=== PATIENT | female | born 1955 | race Caucasian/White ===

== ENCOUNTER 2019-05-25 15:45 | Emergency (ER) | payer OTHER ==
[2019-05-25] MEDS ORDERED: IBUPROFEN 800 MG TABLET PO ONE (16:13)
--- NOTE | 2019-05-25 16:14 | ER Document Report ---
ED Medical Screen (RME) - General Chief Complaint: Arm Pain Stated Complaint: FALL Time Seen by Provider: 05/25/19 16:08 Mode of Arrival: Ambulatory Information source: Patient Notes: 63-year-old female presents emergency department with complaints of right arm pain. Reports she was walking at [facility] [place] fell face forward hitting her lip and hurting her right arm. Patient has swelling and pain to the right humerus and right wrist pain. Denies change in LOC. Is not taking any type of anticoagulant. I have greeted and performed a rapid initial assessment of this patient. A c omprehensive ED assessment and evaluation of the patient, analysis of test results and completion of the medical decision making process will be conducted by additional ED providers. - Related Data Allergies/Adverse Reactions: No Known Allergies Allergy (Verified 05/25/19 16:07) Physical Exam - Vital signs Vitals: Temp Pulse Resp BP Pulse Ox 97.8 F 92 18 152/82 H 97 05/25/19 15:54 05/25/19 15:54 05/25/19 15:54 05/25/19 15:54 05/25/19 15:54 Course - Vital Signs Vital signs: Temp Pulse Resp BP Pulse Ox 97.8 F 92 18 152/82 H 97 05/25/19 15:54 05/25/19 15:54 05/25/19 15:54 05/25/19 15:54 05/25/19 15:54
--- NOTE | 2019-05-25 16:54 | RADIOLOGY REPORT (SQ) ---
EXAM DESCRIPTION: WRIST RIGHT 2 VIEWS COMPLETED DATE/TIME: 05/25/2019 4:46 pm REASON FOR STUDY: fall pain COMPARISON: None. NUMBER OF VIEWS: Two views. TECHNIQUE: AP and lateral radiographic images acquired of the right wrist. LIMITATIONS: None. FINDINGS: MINERALIZATION: Normal. BONES: No acute fracture or dislocation. No worrisome bone lesions. Normal alignment. SOFT TISSUES: No soft tissue swelling. No foreign body. OTHER: No other significant finding. IMPRESSION: NEGATIVE STUDY OF THE RIGHT WRIST. NO RADIOGRAPHIC EVIDENCE OF ACUTE INJURY. TECHNICAL DOCUMENTATION: JOB ID: [id number] [employer]- All Rights Reserved Reading location - IP/workstation name: [email or web address]
--- NOTE | 2019-05-25 16:55 | RADIOLOGY REPORT (SQ) ---
EXAM DESCRIPTION: HUMERUS RIGHT COMPLETED DATE/TIME: 05/25/2019 4:46 pm REASON FOR STUDY: fall pain COMPARISON: None. NUMBER OF VIEWS: Two views. TECHNIQUE: Two radiographic images were acquired of the right humerus to include elbow and shoulder in at least one projection. LIMITATIONS: None. FINDINGS: MINERALIZATION: Normal. BONES: Comminuted fracture of the proximal humerus. Additional fracture of the greater tuberosity. Superior migration of the shaft with respect to the humeral head. SOFT TISSUES: No obvious swelling or foreign body. OTHER: No other significant finding. IMPRESSION: Comminuted fracture of the proximal humerus and additional greater tuberosity fracture. TECHNICAL DOCUMENTATION: JOB ID: [id number] [employer] All Rights Reserved Reading location - IP/workstation name: [email or web address]
[2019-05-25] MEDS ORDERED: MORPHINE SULFATE 10 MG/ML INJ IM ONE (18:32)
[2019-05-25] MEDS ORDERED: MORPHINE SULFATE 10 MG/ML INJ IV ONE (18:42)
[2019-05-25] MEDS ORDERED: HYDROCODONE/ACETAMINOPHEN 5-325 MG (6 TAB/ER DISP) PO PRN (18:46)
--- NOTE | 2019-05-25 18:50 | ER Document Report ---
ED Fall - General Chief Complaint: Arm Pain Stated Complaint: FALL Time Seen by Provider: 05/25/19 16:08 Primary Care Provider: ASHLEIGH VERMA MD [Primary Care Provider] - Follow up in 3-5 days SUSHILA MINOR JR, DO [ACTIVE PROVISIONAL STAFF] - Follow up tomorrow Mode of Arrival: Ambulatory Information source: Patient Notes: 63-year-old female presents for right upper arm and right wrist pain. Patient was hiking today and states she fell forward. Patient denies any other injury, head injury, or LOC. Patient states she is right-handed. - Related data Allergies/Adverse Reactions: No Known Allergies Allergy (Verified 05/25/19 16:07) Past Medical History - General Information source: Patient - Social History Smoking Status: Never Smoker Family History: None Patient has suicidal ideation: No Patient has homicidal ideation: No Review of Systems - Review of Systems Notes: Constitutional: Negative for fever. HENT: Negative for sore throat. Eyes: Negative for visual changes. Cardiovascular: Negative for chest pain. Respiratory: Negative for shortness of breath. Gastrointestinal: Negative for abdominal pain, vomiting or diarrhea. Genitourinary: Negative for dysuria. Musculoskeletal: Positive for right arm and right wrist pain. Negative for back pain. Skin: Negative for rash. Neurological: Negative for headaches, weakness or numbness. 10 point ROS negative except as marked above and in HPI. Physical Exam - Vital signs Vitals: Temp Pulse Resp BP Pulse Ox 97.8 F 92 18 152/82 H 97 05/25/19 15:54 05/25/19 15:54 05/25/19 15:54 05/25/19 15:54 05/25/19 15:54 - Notes Notes: GENERAL: Well-appearing, well-nourished and in no acute distress. HEAD: Atraumatic, normocephalic. EYES: Extraocular movements intact, sclera anicteric, conjunctiva are normal. NECK: Normal range of motion, supple without lymphadenopathy or JVD. EXTREMITIES: Tenderness to right upper arm and right wrist. Radial pulse 2+. Swelling to right upper arm near proximal humerus. No tenderness to right elbow. Cap refill < 2 sec. Pt is able to move her fingers. NEUROLOGICAL: Cranial nerves II through XII grossly intact. Normal speech, normal gait. PSYCH: Normal mood, normal affect. SKIN: Warm, Dry, normal turgor, no rashes or lesions noted. Course - Re-evaluation Re-evalutation: 05/25/19 nontoxic, well-appearing 63-year-old female presents with right upper arm and right wrist pain after falling while hiking. Distal neurovascular intact. X-ray of wrist shows no fracture. X-ray of right humerus shows comminuted fracture of proximal humerus and fracture of greater tuberosity. Discussed with attending, Dr. Pickett, who recommended sling and shoulder immobilizer. Pt given prescription for pain control with sedation warning. Pt given close follow up with ortho and PCP. Return precautions given. Pt voices understanding and agrees with plan of care. - Vital Signs Vital signs: Temp Pulse Resp BP Pulse Ox 97.8 F 92 18 152/82 H 97 05/25/19 15:54 05/25/19 15:54 05/25/19 15:54 05/25/19 15:54 05/25/19 15:54 Procedures - Immobilization Right Upper Arm Pre-Proc Neuro Vasc Exam: Normal Immobilizer type: Shoulder immobilizer, Sling Performed by: PCT Post-Proc Neuro Vasc Exam: Normal, Unchanged from pre-exam Alignment checked and good: Yes Discharge - Discharge Clinical Impression: Comminuted right humeral fracture Qualifiers: Encounter type: initial encounter Humerus Location: shaft Fracture type: closed Fracture alignment: displaced Qualified Code(s): S42.351A - Displaced comminuted fracture of shaft of humerus, right arm, initial encounter for closed fracture Fracture of greater tuberosity of right humerus Qualifiers: Encounter type: initial encounter Fracture type: closed Fracture alignment: nondisplaced Qualified Code(s): S42.254A - Nondisplaced fracture of greater tuberosity of right humerus, initial encounter for closed fracture Condition: Stable Disposition: HOME, SELF-CARE Instructions: Fracture Proximal Humerus, Sling as Treatment ([facility]), Sling to be Used ([facility]), Temporary Sling ([facility]) Additional Instructions: Please wear sling and shoulder immobilizer. Please take medication as prescribed. Please do not drink or drive while taking as it may make you drowsy. Please call Ortho doctor in the morning to make a follow-up appointment. Please follow-up with your primary care doctor in 3 to 5 days. Return immediately to ER if you start having any worsening symptoms, including worsening pain, fingers turning blue, fever, reinjury, chest pain, shortness of breath, or any other symptoms that are concerning to you. Prescriptions: Hydrocodone/Acetaminophen [[place] 5-325 mg Tablet] 1 tab PO Q6 #20 tablet Referrals: ASHLEIGH VERMA MD [Primary Care Provider] - Follow up in 3-5 days SUSHILA MINOR JR, DO [ACTIVE PROVISIONAL STAFF] - Follow up tomorrow
[2019-05-25 19:32] VITALS: BP 155/79
== END 2019-05-25 20:07 | disposition home or self-care (01) ==
LOC: ER 15:45
DX: S42.351A Displaced comminuted fracture of shaft of humerus, right arm, initial encounter for closed fracture (principal); S42.254A Nondisplaced fracture of greater tuberosity of right humerus, initial encounter for closed fracture; W18.30XA Fall on same level, unspecified, initial encounter; Y93.01 Activity, walking, marching and hiking
CPT/HCPCS: 73060; 73100; J2270; 96372; 99283

== ENCOUNTER → 2019-05-28 | Outpatient (CLI) | payer OTHER ==
--- NOTE | 2019-05-29 08:55 | RADIOLOGY REPORT (SQ) ---
EXAM DESCRIPTION: CT RT UPPER EXTREMITY WITHOUT COMPLETED DATE/TIME: 05/28/2019 1:41 pm REASON FOR STUDY: S42.201A UNSP FRACTURE OF UPPER END OF RIGHT HUMERUS, INIT S42.201A UNSP FRACTURE OF UPPER END OF RIGHT HUMERUS, INIT COMPARISON: Right humerus films 05/25/2019 TECHNIQUE: [facility] with reformatted oblique coronal and ob lique sagittal imaging windowed for bone and soft tissues. All CT scanners at this facility use dose modulation, iterative reconstruction, and/or weight based d osing when appropriate to reduce radiation dose to as low as reasonably achievable (ALARA). [facility]: Dose Right [facility]: CareDose [facility]: Dose Right [facility]: Teradose 4D [facility]: [employer] RADIATION DOSE: CT Rad equipment meets quality standard of care and radiation dose reduction techniq ues were employed. CTDIvol: 24.4 mGy. DLP: 582 mGy-cm. mGy. LIMITATIONS: None. FINDINGS: Overall normal bone density. A comminuted right proximal humerus fracture is present through the metaphysis extending into the art icular surface. Large humeral head fragments are present involving the greater tuberosity and anteri or and posterior humeral head articular surfaces. There is partial anterior dislocation of the humer al head at the fracture site, with the inferior bony glenoid articulating with the proximal humeral m etaphysis on coronal reconstruction images 24-33. Large joint effusion. Clavicle, scapula, right upper ribs are intact. No infiltrates in the right upper lobe. IMPRESSION: Comminuted right humeral head fracture with anterior subluxation of the humeral head fra gments and proximal humeral metaphysis with respect to the bony glenoid TECHNICAL DOCUMENTATION: JOB ID: [id number] Quality ID # [id number]: Final reports with documentation of one or more dose reduction techniques (e.g., Au tomated exposure control, adjustment of the mA and/or kV according to patient size, use of iterative reconstruction technique) 2010 [employer]- All Rights Reserved Reading location - IP/workstation name: [email or web address]
== END ==
LOC: RAD 13:38
PROVIDERS: ATTEND Physician Assistant
DX: S42.201A Unspecified fracture of upper end of right humerus, initial encounter for closed fracture (principal); X58.XXXA Exposure to other specified factors, initial encounter; Y93.9 Activity, unspecified; Y92.9 Unspecified place or not applicable